=== PATIENT | female | born 1945 | race Caucasian/White ===

== ENCOUNTER 2018-07-30 05:22 | Inpatient (IN) | payer MEDICARE, MEDICAID ==
[~2018-07-30] VITALS: Ht 165.1 cm; Wt 62.0 kg
[~2018-07-30 05:22] MED LIST: GABA-531 PO; HYDR50CA10 PO; LOPE2 PO; OLAN10TA3 PO; OMEG1CAP6 PO; TRAZ-219 PO
[2018-07-30] MEDS ORDERED: BETH25 PO (05:37)
[2018-07-30] MEDS ORDERED: PALI6 PO (05:38)
[2018-07-30] MEDS ORDERED: MELA3TAB PO (05:39)
[2018-07-30] MEDS ORDERED: CITA10TA68 PO (05:39)
[2018-07-30] MEDS ORDERED: METO25 PO (05:41)
[2018-07-30] MEDS ORDERED: DIVA125T2 PO (05:42)
[2018-07-30] MEDS ORDERED: AMAN100C12 PO (05:42)
[2018-07-30] MEDS ORDERED: MULT-1239 PO (05:43)
[2018-07-30 06:21] LABS: EOSINOPHILS % (AUTO) 0.5 % (1.0-6.0); HEMATOCRIT 34.2 % (36-46); HEMOGLOBIN 12.1 g/dL (12.0-16.0); LYMPHOCYTES # (AUTO) 1.3 K/uL (1.0-4.8); LYMPHOCYTES % (AUTO) 13.7 % (22.0-44.0); MEAN CORPUSCULAR HEMOGLOBIN 32.1 pg (26.0-34.0); MEAN CORPUSCULAR HGB CONC 35.3 G/dL (31.0-37.0); MEAN CORPUSCULAR VOLUME 91 fL (80-100); MONOCYTES # (AUTO) 0.8 K/uL (0.1-1.0); MONOCYTES % (AUTO) 7.7 % (2.0-9.0); NEUTROPHILS # (AUTO) 7.6 K/uL (1.8-7.7); NEUTROPHILS % (AUTO) 78.1 % (40.0-70.0); PLATELET COUNT (AUTO) 234 K/uL (150-450); RED BLOOD CELL COUNT(AUTO) 3.76 MIL/uL (4.00-5.20)
[2018-07-30] MEDS ORDERED: LORazepam 2 MG/ML VIAL IM ONE (06:30)
[2018-07-30] MEDS ORDERED: HALOPERIDOL LACTATE 5 MG/ML VIAL IM ONE (06:30)
[2018-07-30] MEDS ORDERED: DiphenhydrAMINE HCL 50 MG/ML VIAL IM ONE (06:30)
[2018-07-30 06:33] LABS: ALANINE AMINOTRANSFERASE 25 U/L (12-78); ALBUMIN 3.6 g/dL (3.4-5.0); ALKALINE PHOSPHATASE 74 U/L (46-116); ANION GAP 8 mmol/L (8-16); ASPARTATE AMINOTRANSFERASE 29 U/L (15-37); BILIRUBIN,TOTAL 0.5 mg/dL (0.1-1.0); CALCIUM, TOTAL 8.4 mg/dL (8.8-10.5); CARBON DIOXIDE 27 mmol/L (22-29); CHLORIDE 88 mmol/L (98-107); CREATININE 0.81 mg/dL (0.60-1.30); GLUCOSE,RANDOM 113 mg/dL (70-110); POTASSIUM 3.9 mmol/L (3.5-5.1); TOTAL PROTEIN, SERUM 7.2 g/dL (6.4-8.2); UREA NITROGEN, BLOOD 11 mg/dL (7-18)
[2018-07-30 06:40] LABS: GLOMERULAR FILTR. RATE CALC > 60 mL/min (>60); SODIUM SERUM 123 mmol/L (136-145)
[2018-07-30] MEDS ORDERED: SODIUM CHLORIDE 0.9% 1,000 ML IV ONE ×2 (08:00→16:15)
[2018-07-30 13:08] LABS: AMPHET/METH SCREEN,URINE NEGATIVE (NEGATIVE); BARBITURATE SCREEN, URINE NEGATIVE (NEGATIVE); BENZODIAZEPINES SCREEN,URINE NEGATIVE (NEGATIVE); CANNABINOID SCREEN,URINE NEGATIVE (NEGATIVE); COCAINE SCREEN,URINE NEGATIVE (NEGATIVE); METHADONE SCREEN, URINE NEGATIVE (NEGATIVE); OPIATE SCREEN,URINE NEGATIVE (NEGATIVE); PHENCYCLIDINE SCREEN,URINE NEGATIVE (NEGATIVE)
[2018-07-30 13:46] LABS: APPEARANCE,URINE CLOUDY (CLEAR); BILIRUBIN,URINE NEGATIVE (NEGATIVE); GLUCOSE, URINE (UA) NEGATIVE (NEGATIVE); KETONES,URINE 40 mg/dL (NEGATIVE); NITRATE,URINE POSITIVE (NEGATIVE); OCCULT BLOOD,URINE TRACE (NEGATIVE); PROTEIN,URINE NEGATIVE (NEGATIVE); UROBILINOGEN,URINE 0.2 mg/dL (<=1.0)
[2018-07-30 13:55] LABS: LEUKOCYTE ESTERASE ,URINE MODERATE (NEGATIVE)
[2018-07-30 13:56] LABS: BACTERIA,URINE Many /HPF (None Seen); RBC,URINE 0-2 /HPF (0-2)
[2018-07-30] MEDS ORDERED: 0.9% SODIUM CHLORIDE 10 ML SYRINGE IVP PRN (14:15)
[2018-07-30] MEDS ORDERED: ACETAMINOPHEN 325 MG TABLET PO PRN (14:15)
[2018-07-30 15:35] VITALS: BP 97/56
[2018-07-30] MEDS ORDERED: IPRATROPIUM BROMIDE 0.5 MG/2.5 ML NEB SOLUTION NEB SCH (16:00)
[2018-07-30] MEDS ORDERED: ALBUTEROL SULFATE 2.5 MG/0.5 ML NEB SOLUTION NEB SCH (16:00)
[2018-07-30] MEDS ORDERED: OLAN7.5T2 PO (16:10)
[2018-07-30] MEDS ORDERED: DIVA-76 PO (16:10)
[2018-07-30] MEDS: CefTRIAXone 1 GM/DEXTROSE 50 ML IV SCH (17:23)
[2018-07-30] MEDS ORDERED: MAGNESIUM HYDROXIDE SUSPENSION 30 ML UDCUP PO PRN (19:00)
[2018-07-30] MEDS ORDERED: ALBUTEROL SULFATE 2.5 MG/0.5 ML NEB SOLUTION NEB PRN (19:00)
[2018-07-30 19:40] VITALS: BP 145/71
[2018-07-30] MEDS: DOCUSATE SODIUM 100 MG CAPSULE PO SCH (19:42)
[2018-07-30] MEDS: GuaiFENesin [SUGAR-FREE] 200 MG/10 ML SOLUTION UDCUP PO PRN (22:16)
[2018-07-30 23:13] VITALS: BP 144/64
[2018-07-30] MEDS: HEPARIN SODIUM,PORCINE 5,000 UNITS/ML VIAL SQ SCH (23:43)
[2018-07-30] MEDS: LORazepam 2 MG/ML VIAL IVP PRN (23:47)
[2018-07-31] MEDS: LORazepam 2 MG/ML VIAL IVP PRN ×2 (04:37→15:56)
[2018-07-31] MEDS: ACETAMINOPHEN 325 MG TABLET PO PRN (04:48)
[2018-07-31 04:51] VITALS: BP 94/59
[2018-07-31] MEDS: GuaiFENesin [SUGAR-FREE] 200 MG/10 ML SOLUTION UDCUP PO PRN ×3 (05:14→19:36)
[2018-07-31 06:33] LABS: BASOPHILS % (AUTO) 0.1 % (0.0-2.0); EOSINOPHILS % (AUTO) 0.7 % (1.0-6.0); HEMATOCRIT 33.4 % (36-46); HEMOGLOBIN 11.8 g/dL (12.0-16.0); LYMPHOCYTES # (AUTO) 1.4 K/uL (1.0-4.8); LYMPHOCYTES % (AUTO) 17.6 % (22.0-44.0); MEAN CORPUSCULAR HEMOGLOBIN 31.7 pg (26.0-34.0); MEAN CORPUSCULAR HGB CONC 35.3 G/dL (31.0-37.0); MEAN CORPUSCULAR VOLUME 90 fL (80-100); MONOCYTES # (AUTO) 0.6 K/uL (0.1-1.0); MONOCYTES % (AUTO) 8.3 % (2.0-9.0); NEUTROPHILS # (AUTO) 5.7 K/uL (1.8-7.7); NEUTROPHILS % (AUTO) 73.3 % (40.0-70.0); PLATELET COUNT (AUTO) 236 K/uL (150-450); RED BLOOD CELL COUNT(AUTO) 3.72 MIL/uL (4.00-5.20)
[2018-07-31 06:46] LABS: ALANINE AMINOTRANSFERASE 24 U/L (12-78); ALBUMIN 2.9 g/dL (3.4-5.0); ALKALINE PHOSPHATASE 73 U/L (46-116); ANION GAP 12 mmol/L (8-16); ASPARTATE AMINOTRANSFERASE 35 U/L (15-37); BILIRUBIN,TOTAL 0.6 mg/dL (0.1-1.0); CALCIUM, TOTAL 7.9 mg/dL (8.8-10.5); CARBON DIOXIDE 23 mmol/L (22-29); CHLORIDE 94 mmol/L (98-107); CREATININE 0.48 mg/dL (0.60-1.30); GLUCOSE,RANDOM 86 mg/dL (70-110); POTASSIUM 3.5 mmol/L (3.5-5.1); SODIUM SERUM 129 mmol/L (136-145); TOTAL PROTEIN, SERUM 6.4 g/dL (6.4-8.2); UREA NITROGEN, BLOOD 6 mg/dL (7-18)
[2018-07-31 06:50] LABS: GLOMERULAR FILTR. RATE CALC > 60 mL/min (>60)
[2018-07-31 07:30] VITALS: BP 96/66
[2018-07-31] MEDS: HEPARIN SODIUM,PORCINE 5,000 UNITS/ML VIAL SQ SCH ×2 (08:43→15:56)
[2018-07-31] MEDS: PANTOPRAZOLE SODIUM 40 MG DR TABLET PO SCH (08:43)
[2018-07-31] MEDS: DOCUSATE SODIUM 100 MG CAPSULE PO SCH ×2 (08:43→19:35)
[2018-07-31 11:43] VITALS: BP 101/74
[2018-07-31 15:24] VITALS: BP 97/69
[2018-07-31] MEDS: CefTRIAXone 1 GM/DEXTROSE 50 ML IV SCH (17:25)
[2018-07-31] MEDS ORDERED: 0.9% SODIUM CHLORIDE 5 ML NEB SOLUTION NEB ONE (18:37)
[2018-07-31 19:38] VITALS: BP 111/69
[2018-07-31 23:36] VITALS: BP 111/58
[2018-08-01] MEDS: GuaiFENesin [SUGAR-FREE] 200 MG/10 ML SOLUTION UDCUP PO PRN ×3 (01:05→22:33)
[2018-08-01] MEDS: ACETAMINOPHEN 325 MG TABLET PO PRN ×2 (01:35→19:59)
[2018-08-01] MEDS: LORazepam 2 MG/ML VIAL IVP PRN ×2 (02:52→07:55)
[2018-08-01 04:54] VITALS: BP 99/60
[2018-08-01 07:16] VITALS: BP 102/58
[2018-08-01 07:18] LABS: ANION GAP 6 mmol/L (8-16); CALCIUM, TOTAL 7.7 mg/dL (8.8-10.5); CARBON DIOXIDE 29 mmol/L (22-29); CHLORIDE 94 mmol/L (98-107); CREATININE 0.62 mg/dL (0.60-1.30); GLOMERULAR FILTR. RATE CALC > 60 mL/min (>60); GLUCOSE,RANDOM 94 mg/dL (70-110); PHOSPHORUS 3.3 mg/dL (2.5-4.9); POTASSIUM 3.5 mmol/L (3.5-5.1); SODIUM SERUM 129 mmol/L (136-145); THYROID STIMULATING HORMONE 1.92 uIU/mL (0.36-3.74); UREA NITROGEN, BLOOD 10 mg/dL (7-18)
[2018-08-01] MEDS: PANTOPRAZOLE SODIUM 40 MG DR TABLET PO SCH (07:55)
[2018-08-01] MEDS: DOCUSATE SODIUM 100 MG CAPSULE PO SCH ×2 (07:55→20:00)
[2018-08-01] MEDS: HEPARIN SODIUM,PORCINE 5,000 UNITS/ML VIAL SQ SCH ×3 (07:56→16:00)
[2018-08-01] MEDS ORDERED: MAGNESIUM OXIDE 400 MG TABLET PO ONE (08:00)
[2018-08-01] MEDS ORDERED: SODIUM CHLORIDE 0.9% 100 ML ONE (08:19)
[2018-08-01] MEDS ORDERED: 0.9% SODIUM CHLORIDE 5 ML NEB SOLUTION NEB ONE (09:10)
[2018-08-01 11:11] VITALS: BP 106/62
[2018-08-01 14:54] VITALS: BP 100/68
[2018-08-01 16:26] LABS: SODIUM,URINE RANDOM 27 mmol/l (20-110)
[2018-08-01 16:29] LABS: OSMOLALITY,URINE 433 mOS/kg (50-1200)
[2018-08-01] MEDS: CefTRIAXone 1 GM/DEXTROSE 50 ML IV SCH (17:40)
[2018-08-01 19:49] VITALS: BP 134/76
[2018-08-02] MEDS: HEPARIN SODIUM,PORCINE 5,000 UNITS/ML VIAL SQ SCH ×5 (00:07→23:43)
[2018-08-02 00:23] VITALS: BP 119/77
[2018-08-02 04:16] VITALS: BP 10/62
[2018-08-02 06:53] LABS: ANION GAP 7 mmol/L (8-16); CALCIUM, TOTAL 8.1 mg/dL (8.8-10.5); CARBON DIOXIDE 28 mmol/L (22-29); CHLORIDE 93 mmol/L (98-107); CREATININE 0.47 mg/dL (0.60-1.30); GLUCOSE,RANDOM 108 mg/dL (70-110); PHOSPHORUS 3.9 mg/dL (2.5-4.9); POTASSIUM 3.7 mmol/L (3.5-5.1); SODIUM SERUM 128 mmol/L (136-145); UREA NITROGEN, BLOOD 6 mg/dL (7-18)
[2018-08-02 06:58] LABS: GLOMERULAR FILTR. RATE CALC > 60 mL/min (>60)
[2018-08-02 07:21] VITALS: BP 104/76
[2018-08-02] MEDS: PANTOPRAZOLE SODIUM 40 MG DR TABLET PO SCH (07:58)
[2018-08-02] MEDS: DOCUSATE SODIUM 100 MG CAPSULE PO SCH ×2 (07:58→20:00)
[2018-08-02 11:18] VITALS: BP 95/65
[2018-08-02] MEDS: SODIUM CHLORIDE 1 GM TABLET PO SCH ×2 (11:25→20:00)
[2018-08-02] MEDS: LORazepam 2 MG/ML VIAL IVP PRN ×2 (11:25→20:06)
[2018-08-02] MEDS ORDERED: MAGNESIUM SULFATE 2 GM/WATER 50 ML IV PRN (13:15)
[2018-08-02] MEDS ORDERED: MAGNESIUM SULFATE 4 GM/WATER 100 ML IV PRN (13:15)
[2018-08-02] MEDS ORDERED: POTASSIUM CHLORIDE 20 MEQ ER TABLET PO PRN ×2 (15:00)
[2018-08-02] MEDS ORDERED: POTASSIUM CHL 10 MEQ/WATER 50 ML IV PRN (15:00)
[2018-08-02] MEDS: ACETAMINOPHEN 325 MG TABLET PO PRN ×2 (15:35→20:01)
[2018-08-02] MEDS: CefTRIAXone 1 GM/DEXTROSE 50 ML IV SCH (17:55)
[2018-08-02 19:43] VITALS: BP 147/77
[2018-08-02] MEDS: MAGNESIUM OXIDE 400 MG TABLET PO PRN ×2 (20:00→23:43)
[2018-08-02] MEDS: GuaiFENesin/D-METHORPHAN [SUGAR-FREE] 200-20MG/10 ML SYRUP UDCUP PO PRN (20:58)
[2018-08-02 23:51] VITALS: BP 121/70
[2018-08-03] MEDS: MAGNESIUM OXIDE 400 MG TABLET PO PRN ×2 (03:41→15:38)
[2018-08-03] MEDS: ACETAMINOPHEN 325 MG TABLET PO PRN ×3 (03:41→15:37)
[2018-08-03 04:20] VITALS: BP 133/64
[2018-08-03] MEDS: GuaiFENesin/D-METHORPHAN [SUGAR-FREE] 200-20MG/10 ML SYRUP UDCUP PO PRN (05:50)
[2018-08-03 07:12] LABS: ANION GAP 4 mmol/L (8-16); CALCIUM, TOTAL 8.2 mg/dL (8.8-10.5); CARBON DIOXIDE 28 mmol/L (22-29); CHLORIDE 94 mmol/L (98-107); CREATININE 0.64 mg/dL (0.60-1.30); GLUCOSE,RANDOM 98 mg/dL (70-110); PHOSPHORUS 3.6 mg/dL (2.5-4.9); POTASSIUM 4.3 mmol/L (3.5-5.1); SODIUM SERUM 126 mmol/L (136-145); UREA NITROGEN, BLOOD 7 mg/dL (7-18)
[2018-08-03] MEDS: LORazepam 2 MG/ML VIAL IVP PRN (07:12)
[2018-08-03 07:13] LABS: GLOMERULAR FILTR. RATE CALC > 60 mL/min (>60)
[2018-08-03 07:16] VITALS: BP 148/77
[2018-08-03] MEDS: PANTOPRAZOLE SODIUM 40 MG DR TABLET PO SCH (08:00)
[2018-08-03] MEDS: SODIUM CHLORIDE 1 GM TABLET PO SCH ×3 (08:00→15:37)
[2018-08-03] MEDS: HEPARIN SODIUM,PORCINE 5,000 UNITS/ML VIAL SQ SCH ×2 (08:01→16:51)
[2018-08-03] MEDS: DOCUSATE SODIUM 100 MG CAPSULE PO SCH (08:02)
[2018-08-03 11:50] VITALS: BP 94/61
[2018-08-03 15:20] VITALS: BP 134/67
[2018-08-03] MEDS ORDERED: PANT40TA25 PO (17:51)
[2018-08-03] MEDS ORDERED: NACL1 PO (17:51)
[2018-08-03] MEDS ORDERED: CEFX1I IV (17:51)
[2018-08-03] MEDS: CefTRIAXone 1 GM/DEXTROSE 50 ML IV SCH (18:41)
== END 2018-08-03 20:00 | disposition home or self-care (01) | DRG 871 ==
LOC: EMS 05:29 → 5S 14:19 → 6N 08-03 10:16
PROVIDERS: ADMIT Internal Medicine; ATTEND Internal Medicine
DX: A41.9 Sepsis, unspecified organism (principal); G93.41 Metabolic encephalopathy; E87.1 Hypo-osmolality and hyponatremia; N39.0 Urinary tract infection, site not specified; E87.0 Hyperosmolality and hypernatremia; I10 Essential (primary) hypertension; F20.9 Schizophrenia, unspecified; F03.90 Unspecified dementia, unspecified severity, without behavioral disturbance, psychotic disturbance, mood disturbance, and anxiety; J44.9 Chronic obstructive pulmonary disease, unspecified; Z85.3 Personal history of malignant neoplasm of breast; Z87.891 Personal history of nicotine dependence
CPT/HCPCS: 82533; 83735; 83935; 84100; 84132; 84295; 84300; 84443; 87086; 93005; 94640; 96372; 97161; 97166; 97530; 97535; G0378; G0480; J0696; J1200; J1630; J1644; J2060; J3475; J7030; J7050